=== PATIENT | female | born 1980 | race Caucasian/White ===

== ENCOUNTER → 2017-06-22 | Outpatient (CLI) | payer OTHER | LOC: HYPER 06:58 | DX: T81.89XA Other complications of procedures, not elsewhere classified, initial encounter (principal); L05.01 Pilonidal cyst with abscess; Y83.8 Other surgical procedures as the cause of abnormal reaction of the patient, or of later complication, without mention of misadventure at the time of the procedure; Y92.89 Other specified places as the place of occurrence of the external cause ==

== ENCOUNTER → 2017-07-06 | Outpatient (CLI) | payer OTHER | LOC: HYPER 07:18 | DX: T81.89XD Other complications of procedures, not elsewhere classified, subsequent encounter (principal); L05.01 Pilonidal cyst with abscess; Y83.8 Other surgical procedures as the cause of abnormal reaction of the patient, or of later complication, without mention of misadventure at the time of the procedure ==

== ENCOUNTER → 2017-08-17 | Outpatient (CLI) | payer OTHER | LOC: HYPER 07:18 | DX: T81.89XD Other complications of procedures, not elsewhere classified, subsequent encounter (principal); L05.01 Pilonidal cyst with abscess; Y83.8 Other surgical procedures as the cause of abnormal reaction of the patient, or of later complication, without mention of misadventure at the time of the procedure ==

== ENCOUNTER → 2017-09-16 | Outpatient (CLI) | payer OTHER | LOC: HYPER 06:46 | DX: T81.89XD Other complications of procedures, not elsewhere classified, subsequent encounter (principal); Y83.8 Other surgical procedures as the cause of abnormal reaction of the patient, or of later complication, without mention of misadventure at the time of the procedure ==